=== PATIENT | male | born 1945 | race Caucasian/White ===

== ENCOUNTER 2022-06-29 02:25 | Inpatient (IN) ==
[2022-06-29] MEDS ORDERED: Vancomycin 1,000 MG in NS 0.9% 250 ml 250 ML IVPB ONE (02:49)
[2022-06-29] MEDS ORDERED: Cefepime 2 GM in Dextrose 2 GM/50 ML BAG IV ONE (02:49)
[2022-06-29 03:06] LABS: ABS Lymphocytes 0.1 10^3/ul (1.0-4.8); ABS Monocytes 0.5 10^3/ul (0-0.8); ABS Neutrophils 9.4 10^3/ul (1.5-7.7); Hematocrit 36 % (42-52); Lymphocyte % 1.4 %; Mean Corpuscular HGB Conc 33 g/dL (31-36); Mean Corpuscular Hemoglobin 31 pg (27-31); Mean Corpuscular Volume 95 fL (80-94); Mean Platelet Volume 8.8 fL (7.4-10.4); Platelet Count 220 10^3/uL (150-450); Red Blood Count 3.86 10^6 /uL (4.18-5.48); Red Cell Distribution Width 14 % (10-15)
[2022-06-29 03:13] LABS: Activated Partial Thrombo Time 31.1 seconds (26.0-38.0); INR 1.14 (0.88-1.18)
[2022-06-29 03:21] LABS: Albumin 3.6 g/dL (3.2-5.2); Calcium 7.8 mg/dL (8.6-10.3); Potassium 4.6 mmol/L (3.5-5.0); Total Bilirubin 0.4 mg/dL (0.2-1.0)
[2022-06-29] MEDS ORDERED: Acetaminophen IV 1 GM/100ML 1,000 MG/100 ML BAG IV ONE (03:21)
[2022-06-29 03:27] LABS: Albumin/Globulin Ratio 1.5 (1-3); C Reactive Protein 120.45 mg/L (<8.01); Globulin 2.4 g/dL (2-4); eGFR CKD-EPI 54.9 (>60)
[2022-06-29] MEDS ORDERED: Iodixanol (CONTRAST) 320 MG/ML 100 ML SDV IV ONE (03:30)
[2022-06-29 03:32] LABS: Urine Appearance Cloudy; Urine Bilirubin Negative (Negative); Urine Blood 1+ (Negative); Urine Color Yellow; Urine Glucose Negative (Negative); Urine Ketones Trace (Negative); Urine Nitrite Negative (Negative); Urine Protein 2+(100 mg/dL) (Negative); Urine Specific Gravity 1.021 (1.002-1.030); Urine Urobilinogen Negative (Negative)
[2022-06-29 03:38] LABS: Urine Bacteria 1+ (Absent); Urine Red Blood Cell 3+(>10/hpf) (Absent); Urine White Blood Cell 3+(>20/hpf) (Absent)
[2022-06-29] MEDS ORDERED: Vancomycin 2,000 MG in NS 0.9% 500 ml BAG 500 ML IVPB ONE (04:05)
[2022-06-29 04:26] LABS: High Sensitivity Troponin 1 Hr 15 pg/mL (<20)
[2022-06-29] MEDS ORDERED: Glycerin ADULT 2.4 gm SUPP PR ONE (06:17)
[2022-06-29] MEDS ORDERED: NS 0.9% 1000 ml BAG 1,000 ML IV SCH (10:15)
[2022-06-29 10:39] LABS: Osmolality Serum 262 mOsm/kg (275-295)
[2022-06-29] MEDS ORDERED: PEG 3000 GI LAVAGE 1 GALLON PO ONE (10:46)
[2022-06-29] MEDS ORDERED: cefTRIAXone 1 gm/50 mL D5W 1 GM/50 ML BAG IV ONE (10:49)
[2022-06-29] MEDS ORDERED: Carbidopa/Levodop 25/250MG TAB PO STA (11:14)
[2022-06-29] MEDS: Enoxaparin 40 MG/0.4 ML SYR SUBCUT SCH (12:24)
[2022-06-29] MEDS: Ondansetron ODT 4 mg TAB 4 MG TAB SL SCH ×3 (12:24→22:09)
[2022-06-29 13:27] LABS: Calcium 7.7 mg/dL (8.6-10.3); Potassium 4.2 mmol/L (3.5-5.0)
[2022-06-29 13:35] LABS: Urine Osmo 574 mOsm/kg (150-1150)
[2022-06-29] MEDS: Carbidopa/Levodop 25/250MG TAB PO SCH ×2 (15:25→21:04)
[2022-06-29 16:55] LABS: Calcium 7.8 mg/dL (8.6-10.3); Potassium 4.1 mmol/L (3.5-5.0); eGFR CKD-EPI 68.1 (>60)
[2022-06-29] MEDS ORDERED: Lactated Ringers 1000 ml BAG 1,000 ML IV ONE (17:03)
[2022-06-29 22:12] LABS: Calcium 7.8 mg/dL (8.6-10.3); Potassium 4.2 mmol/L (3.5-5.0); eGFR CKD-EPI 66.7 (>60)
[2022-06-30 04:15] LABS: ABS Lymphocytes 0.2 10^3/ul (1.0-4.8); ABS Monocytes 0.3 10^3/ul (0-0.8); ABS Neutrophils 4.3 10^3/ul (1.5-7.7); Eosinophil % 0.4 %; Hematocrit 33 % (42-52); Hemoglobin 11.4 g/dL (14.0-18.0); Lymphocyte % 4.3 %; Mean Corpuscular HGB Conc 35 g/dL (31-36); Mean Corpuscular Hemoglobin 33 pg (27-31); Mean Corpuscular Volume 94 fL (80-94); Mean Platelet Volume 8.7 fL (7.4-10.4); Platelet Count 174 10^3/uL (150-450); Red Blood Count 3.51 10^6 /uL (4.18-5.48); Red Cell Distribution Width 14 % (10-15); White Blood Count 4.8 10^3/uL (3.5-10.8)
[2022-06-30 04:48] LABS: Calcium 7.8 mg/dL (8.6-10.3); Potassium 4.1 mmol/L (3.5-5.0); eGFR CKD-EPI 72.7 (>60)
[2022-06-30] MEDS: Ondansetron ODT 4 mg TAB 4 MG TAB SL SCH ×5 (05:04→22:05)
[2022-06-30] MEDS: Carbidopa/Levodop 25/250MG TAB PO SCH ×3 (09:30→22:05)
[2022-06-30] MEDS: Enoxaparin 40 MG/0.4 ML SYR SUBCUT SCH (09:31)
[2022-06-30] MEDS: cefTRIAXone 1 gm/50 mL D5W 1 GM/50 ML BAG IV SCH (11:41)
[2022-06-30] MEDS ORDERED: NS 0.9% 500 ml BAG 500 ML IV SCH (12:00)
[2022-06-30] MEDS: DOXYcycline 100 MG in NS 0.9% 250 ml 250 ML IVPB SCH (12:52)
[2022-06-30 15:23] LABS: Calcium 7.7 mg/dL (8.6-10.3); Potassium 3.9 mmol/L (3.5-5.0); eGFR CKD-EPI 79.9 (>60)
[2022-06-30] MEDS ORDERED: NS 0.9% 500 ml BAG 500 ML IV ONE (17:40)
[2022-06-30] MEDS: Ure-Na 15 GM POWD.PACK PO SCH (18:10)
[2022-06-30] MEDS ORDERED: Albuterol HFA INHALER 8 gm MDI INH PRN (19:11)
[2022-06-30] MEDS: Polyethylene Glycol 3350 17 GM PACKET PO SCH (22:05)
[2022-07-01] MEDS: DOXYcycline 100 MG in NS 0.9% 250 ml 250 ML IVPB SCH ×3 (00:15→23:36)
[2022-07-01] MEDS: Ondansetron ODT 4 mg TAB 4 MG TAB SL SCH ×4 (05:07→23:30)
[2022-07-01 06:33] LABS: ABS Lymphocytes 0.4 10^3/ul (1.0-4.8); ABS Monocytes 0.6 10^3/ul (0-0.8); ABS Neutrophils 4.2 10^3/ul (1.5-7.7); Eosinophil % 0.3 %; Hematocrit 35 % (42-52); Hemoglobin 11.6 g/dL (14.0-18.0); Lymphocyte % 6.8 %; Mean Corpuscular HGB Conc 33 g/dL (31-36); Mean Corpuscular Hemoglobin 31 pg (27-31); Mean Corpuscular Volume 94 fL (80-94); Mean Platelet Volume 8.9 fL (7.4-10.4); Platelet Count 201 10^3/uL (150-450); Red Blood Count 3.71 10^6 /uL (4.18-5.48); Red Cell Distribution Width 14 % (10-15); White Blood Count 5.2 10^3/uL (3.5-10.8)
[2022-07-01 07:19] LABS: Calcium 7.7 mg/dL (8.6-10.3); eGFR CKD-EPI 89.7 (>60)
[2022-07-01 09:03] LABS: Urine Osmo 532 mOsm/kg (150-1150)
[2022-07-01] MEDS: Carbidopa/Levodop 25/250MG TAB PO SCH ×3 (10:59→20:42)
[2022-07-01] MEDS: Polyethylene Glycol 3350 17 GM PACKET PO SCH ×2 (11:00→20:42)
[2022-07-01] MEDS: Ure-Na 15 GM POWD.PACK PO SCH (11:00)
[2022-07-01] MEDS: Enoxaparin 40 MG/0.4 ML SYR SUBCUT SCH (11:01)
[2022-07-01] MEDS: cefTRIAXone 1 gm/50 mL D5W 1 GM/50 ML BAG IV SCH (11:22)
[2022-07-01] MEDS ORDERED: Magnesium Hydroxide LIQ 30 ML UDC PO PRN (12:25)
[2022-07-01] MEDS ORDERED: Polyethylene Glycol 3350 17 GM PACKET PO PRN (12:25)
[2022-07-01] MEDS ORDERED: Senna TAB 8.6 mg TAB PO PRN (12:25)
[2022-07-01] MEDS ORDERED: Sodium Phosphate ADULT ENEMA 133 ML BTL PR PRN (12:25)
[2022-07-01] MEDS: Magnesium Hydroxide LIQ 30 ML UDC PO SCH (20:42)
[2022-07-01 21:45] LABS: Calcium 8.1 mg/dL (8.6-10.3); Potassium 3.7 mmol/L (3.5-5.0); eGFR CKD-EPI 90.4 (>60)
[2022-07-01 23:49] LABS: Urine Appearance Clear; Urine Bilirubin Negative (Negative); Urine Blood 2+ (Negative); Urine Color Yellow; Urine Glucose Negative (Negative); Urine Ketones Negative (Negative); Urine Nitrite Negative (Negative); Urine Protein 1+(30 mg/dL) (Negative); Urine Specific Gravity 1.012 (1.002-1.030); Urine Urobilinogen Negative (Negative)
[2022-07-01 23:51] LABS: Urine Bacteria 1+ (Absent); Urine Red Blood Cell 3+(>10/hpf) (Absent); Urine White Blood Cell 2+(11-20/hpf) (Absent)
[2022-07-02] MEDS: Ondansetron ODT 4 mg TAB 4 MG TAB SL SCH ×4 (05:06→23:20)
[2022-07-02 06:18] LABS: Hematocrit 33 % (42-52); Hemoglobin 11.5 g/dL (14.0-18.0); Mean Corpuscular HGB Conc 35 g/dL (31-36); Mean Corpuscular Hemoglobin 33 pg (27-31); Mean Corpuscular Volume 93 fL (80-94); Mean Platelet Volume 8.6 fL (7.4-10.4); Platelet Count 215 10^3/uL (150-450); Red Blood Count 3.52 10^6 /uL (4.18-5.48); Red Cell Distribution Width 14 % (10-15); White Blood Count 6.2 10^3/uL (3.5-10.8)
[2022-07-02 06:56] LABS: Calcium 7.9 mg/dL (8.6-10.3); Potassium 3.8 mmol/L (3.5-5.0); eGFR CKD-EPI 91.4 (>60)
[2022-07-02 07:01] LABS: ABS Lymphocytes 0.9 10^3/ul (1.0-4.8); ABS Monocytes 1.5 10^3/ul (0-0.8); ABS Neutrophils 3.7 10^3/ul (1.5-7.7); Eosinophil % 0.4 %; Lymphocyte % 15.3 %
[2022-07-02] MEDS: Carbidopa/Levodop 25/250MG TAB PO SCH ×3 (10:06→20:24)
[2022-07-02] MEDS: Polyethylene Glycol 3350 17 GM PACKET PO SCH ×2 (10:06→20:27)
[2022-07-02] MEDS: Magnesium Hydroxide LIQ 30 ML UDC PO SCH ×2 (10:06→20:24)
[2022-07-02] MEDS: Enoxaparin 40 MG/0.4 ML SYR SUBCUT SCH (10:07)
[2022-07-02] MEDS: cefTRIAXone 1 gm/50 mL D5W 1 GM/50 ML BAG IV SCH (10:16)
[2022-07-02] MEDS: DOXYcycline 100 MG in NS 0.9% 250 ml 250 ML IVPB SCH ×2 (11:33→23:24)
[2022-07-02 15:08] LABS: Calcium 7.8 mg/dL (8.6-10.3); Potassium 3.9 mmol/L (3.5-5.0); eGFR CKD-EPI 92.8 (>60)
[2022-07-03] MEDS: Ondansetron ODT 4 mg TAB 4 MG TAB SL SCH ×2 (04:48→09:55)
[2022-07-03 06:48] LABS: ABS Eosinophils 0.1 10^3/ul (0-0.6); ABS Monocytes 1.2 10^3/ul (0-0.8); ABS Neutrophils 5.5 10^3/ul (1.5-7.7); Eosinophil % 1.3 %; Hematocrit 35 % (42-52); Hemoglobin 11.8 g/dL (14.0-18.0); Lymphocyte % 13.3 %; Mean Corpuscular HGB Conc 34 g/dL (31-36); Mean Corpuscular Hemoglobin 32 pg (27-31); Mean Corpuscular Volume 94 fL (80-94); Mean Platelet Volume 8.2 fL (7.4-10.4); Platelet Count 252 10^3/uL (150-450); Red Blood Count 3.72 10^6 /uL (4.18-5.48); Red Cell Distribution Width 14 % (10-15); White Blood Count 7.8 10^3/uL (3.5-10.8)
[2022-07-03 07:34] LABS: Calcium 8.1 mg/dL (8.6-10.3); Potassium 3.8 mmol/L (3.5-5.0); eGFR CKD-EPI 94.3 (>60)
[2022-07-03] MEDS: Magnesium Hydroxide LIQ 30 ML UDC PO SCH ×2 (07:48→19:57)
[2022-07-03] MEDS: Ondansetron 4 mg VIAL 2 MG/ML 2 ml VIAL IV PRN (07:48)
[2022-07-03] MEDS: Carbidopa/Levodop 25/250MG TAB PO SCH ×3 (07:50→19:56)
[2022-07-03] MEDS: Polyethylene Glycol 3350 17 GM PACKET PO SCH ×2 (08:07→20:02)
[2022-07-03] MEDS: Enoxaparin 40 MG/0.4 ML SYR SUBCUT SCH (09:54)
[2022-07-03] MEDS: cefTRIAXone 1 gm/50 mL D5W 1 GM/50 ML BAG IV SCH (09:55)
[2022-07-03 10:19] LABS: Rapid COVID-19 Molecular Undetected (Undetected)
[2022-07-03] MEDS: DOXYcycline 100 MG in NS 0.9% 250 ml 250 ML IVPB SCH (11:22)
[2022-07-04] MEDS: DOXYcycline 100 MG in NS 0.9% 250 ml 250 ML IVPB SCH (00:14)
[2022-07-04 06:23] LABS: ABS Eosinophils 0.1 10^3/ul (0-0.6); ABS Lymphocytes 1.2 10^3/ul (1.0-4.8); ABS Monocytes 1.3 10^3/ul (0-0.8); ABS Neutrophils 7.6 10^3/ul (1.5-7.7); Eosinophil % 1.3 %; Hematocrit 34 % (42-52); Hemoglobin 11.3 g/dL (14.0-18.0); Lymphocyte % 11.8 %; Mean Corpuscular HGB Conc 34 g/dL (31-36); Mean Corpuscular Hemoglobin 31 pg (27-31); Mean Corpuscular Volume 92 fL (80-94); Mean Platelet Volume 8.3 fL (7.4-10.4); Platelet Count 310 10^3/uL (150-450); Red Cell Distribution Width 14 % (10-15); White Blood Count 10.3 10^3/uL (3.5-10.8)
[2022-07-04 06:39] LABS: Calcium 8.1 mg/dL (8.6-10.3); Potassium 4.3 mmol/L (3.5-5.0); eGFR CKD-EPI 93.9 (>60)
[2022-07-04] MEDS: Polyethylene Glycol 3350 17 GM PACKET PO SCH (07:33)
[2022-07-04 08:00] VITALS: BP 154/80
[2022-07-04] MEDS: Ondansetron 4 mg VIAL 2 MG/ML 2 ml VIAL IV PRN (09:25)
[2022-07-04] MEDS: Enoxaparin 40 MG/0.4 ML SYR SUBCUT SCH (09:27)
[2022-07-04] MEDS: Carbidopa/Levodop 25/250MG TAB PO SCH (09:28)
[2022-07-04] MEDS: Magnesium Hydroxide LIQ 30 ML UDC PO SCH (09:28)
== END 2022-07-04 10:35 | DRG 871 ==
LOC: ED 02:25 → SUATTDRO 07:28 → EDHOLD 07:28 → MED 14:30
PROVIDERS: ADMIT Internal Medicine; ATTEND Hospitalist